=== PATIENT | male | born 1945 | race Caucasian/White ===

== ENCOUNTER 2019-03-16 08:17 | Day surgery (SDC) | payer OTHER ==
[2019-03-15 15:33] LABS: Absolute Lymphocytes (CBC) 0.8 K/uL (0.7-4.9); Basophils % 2.1 % (0-1.3); Lymphocytes % 19.2 % (15.3-44.8); MPV 7.4 fL (7.6-11.3); RBC Red Blood Cell Count 4.07 M/uL (4.33-5.43)
[2019-03-15 15:52] LABS: Potassium 4.7 mmol/L (3.5-5.1)
--- NOTE | 2019-03-15 17:17 | RAD REPORT ---
EXAM DESCRIPTION: RAD - Chest Pa And Lat (2 Views) - 03/15/2019 3:18 pm CLINICAL HISTORY: Preop chest, pending soft tissue mass removal COMPARISON: None. TECHNIQUE: PA and lateral views of the chest were obtained. FINDINGS: The lungs are clear of an acute infiltrate, mass or failure finding. Diaphragm is flattene d. Mild fibrotic changes present. Heart size is normal and central vasculature is within normal jeronimo its. No pleural effusion or pneumothorax seen. No acute bony finding noted. No aortic abnormality. IMPRESSION: No acute cardiopulmonary process. Patient does appear to have some underlying obstructive lung disease.
--- OUTSIDE RECORDS SUMMARY | 2019-03-16 08:22 | XMS REPORT | Clinical Summary ---
:1945 Author Organization [facility] Address [address] [place] [address] Care Team Providers Name Role Phone Jim Ramirez DO Primary Care Provider Allergies No Known Allergies Medications Medication Sig Dispensed Refills Start Date End Date Status allopurinol TAKE 1 TABLET 0 06/26/2017 Active (ZYLOPRIM) 300 MG BY MOUTH EVERY tablet DAY lisinopril Take 20 mg by 0 Active (PRINIVIL,ZESTRIL) mouth. 20 mg tablet omeprazole Reported on 0 05/15/2016 Active (PriLOSEC) 20 MG 11/10/2016 capsule amLODIPine Take 1 tablet 90 tablet 3 10/15/2018 10/15/2019 Active (NORVASC) 5 mg (5 mg total) by tablet mouth daily. amLODIPine Take 1 tablet 90 tablet 3 11/03/2017 10/15/2018 Discontinued (NORVASC) 5 mg (5 mg total) by tablet mouth daily. Active Problems Problem Noted Date Essential hypertension 11/03/2017 Encounters Date Type Specialty Care Team Description 11/02/2018 Office Visit Cardiology Carmine Kee MD Essential hypertension (Primary Dx) 10/15/2018 Orders Only Cardiology Jonathan Sanchez MA 05/04/2018 Office Visit Cardiology Carmine Kee MD Essential hypertension (Primary Dx) after 03/15/2018 Family History Medical History Relation Name Comments Heart failure Father Heart failure Mother Heart failure Paternal Uncle Relation Name Status Comments Father Mother Paternal Uncle Social History Tobacco Use Types Packs/Day Years Used Date Never Smoker Smokeless Tobacco: Never Used Alcohol Use Drinks/Week oz/Week Comments No Sex Assigned at Date Recorded Not on file Job Start Date Occupation Industry Not on file Not on file Not on file Travel History Travel Start Travel End No recent travel history available. Last Filed Vital Signs Vital Sign Reading Time Taken Blood Pressure 151/84 11/02/2018 11:47 AM CDT Pulse 69 11/02/2018 11:47 AM CDT Temperature - - Respiratory Rate - - Oxygen Saturation - - Inhaled Oxygen Concentration - - Weight 90.3 kg (199 lb) 11/02/2018 11:47 AM CDT Height 180.3 cm (5' 11") 11/02/2018 11:47 AM CDT Body Mass Index 27.75 11/02/2018 11:47 AM CDT Plan of Treatment Date Type Specialty Care Team Description 11/01/2019 Office Visit Cardiology Carmine Kee MD [address] [address] Health Maintenance Due Date Last Done Comments COLONOSCOPY SCREENING 1995 SHINGLES VACCINES (#1) 1995 65+ PNEUMOCOCCAL VACCINE (1 of 2 - PCV13) 2010 INFLUENZA VACCINE 03/17/2019 Procedures Procedure Name Priority Date/Time Associated Diagnosis Comments ECG 12-LEAD Routine 11/02/2018 10:49 AM Essential hypertension Results for this CDT procedure are in the results section. after 03/15/2018 Results ECG 12 lead (11/02/2018 10:49 AM CDT) Ventricular rate 62 [facility] Atrial rate 62 [facility] LA interval 148 [facility] QRSD interval 88 [facility] QT interval 384 [facility] QTC interval 389 [facility] P axis 1 54 [facility] QRS axis 1 82 [facility] T wave axis 28 [facility] EKG impression Normal sinus [facility] rhythm-Normal ECG-In automated comparison with ECG of 03-NOV-2017 10:57,-No significant change was found- Specimen Narrative Performed At Performing Organization Address City/State/Zipcode Phone Number [facility] [address] [place] [address] after 03/15/2018 Advance Directives Patient has advance care planning documents on file. For more information, please contact:Chance Cueva[address] [place] [address]
--- OUTSIDE RECORDS SUMMARY | 2019-03-16 08:22 | XMS REPORT ---
:1945 [facility] Address [address] [place] [address] Dr. Do[address] [place] [address] Care Team Providers Name Role Phone Unavailable Unavailable Unavailable Problems This patient has no known problems. Allergies, Adverse Reactions, Alerts This patient has no known allergies or adverse reactions. Medications This patient has no known medications. Encounters Start End Encounter Admission Attending Care Care Encounter Date/Time Date/Time Type Type Clinicians Facility Department ID 2018-12-07 2018-12-07 Outpatient [id number] 06:05:00 06:05:00
[2019-03-16] MEDS ORDERED: CEFAZOLIN/SWI 1gm 1 GM/10 ML SYR ONE (08:52)
[2019-03-16] MEDS ORDERED: Ringers Lactate 1,000 ML IV ONE (08:52)
[2019-03-16] MEDS ORDERED: BUPIVACAINE 0.5% PF 10 ML VIAL ONE (09:34)
[2019-03-16] MEDS ORDERED: PROPOFOL 200 MG/20 ML VIAL IV ONE (09:35)
[2019-03-16] MEDS ORDERED: MIDAZOLAM HCL 2 MG/2 ML INJ ONE (09:36)
[2019-03-16] MEDS ORDERED: LIDOCAINE 2% MPF 5 ML VIAL ONE (09:36)
[2019-03-16] MEDS ORDERED: FENTANYL CITR 100 MCG/2 ML ONE (09:36)
[2019-03-16] MEDS ORDERED: ONDANSETRON 4 MG/2 ML VIAL ONE (09:37)
--- NOTE | 2019-03-16 10:25 | P.BOP ---
Preoperative diagnosis: tender posterior neck mass 4x4 cm Postoperative diagnosis: same Primary procedure: Excisional biopsy of tender posterior neck subcutneous mass 4x4 cm Estimated blood loss: <10cc Specimen: posterior neck mass 4x4 cm Anesthesia: General Complications: None Transferred to: Recovery Room Condition: Good
--- NOTE | 2019-03-16 10:50 | EKG ---
Test Date: 2019-03-15 Test Time: 15:06:08 Rectifier Operator: STACEY MEASUREMENT RESULTS: Intervals: Rate: 64 [place]: 152 QRSD: 94 QT: 384 QTc: 396 [place]: P: 50 [place]: 152 QRS: 40 T: 26 INTERPRETIVE STATEMENTS: Normal sinus rhythm Normal ECG Compared to ECG 05/19/2016 10:30:43 No significant changes Electronically Signed On 03-16-19 10:49:45 CDT by Kenneth Neff
--- NOTE | 2019-03-16 21:38 | OP ---
Date of Procedure: 03/16/2019 Surgeon: Jonathan Cuello MD Preoperative Diagnoses: Tender posterior neck mass, history of history of skin cancer. Postoperative Diagnoses: Tender posterior neck mass, history of history of skin cancer. Procedure: Excisional biopsy of tender posterior neck subcutaneous mass, 4 x 4 cm. Specimen: Posterior neck mass. Indications: This is a case of a 73-year-old patient with multiple medical problems including being treated currently for cancer. Patient has this new mass in the posterior neck, increasing in size an d discomfort and tenderness. He is afraid it could be something neoplastic. At the same time, if it is not neoplastic and is an infected cyst, then it would also put him at risk since he is right now on current therapy for his other conditions. He wants that excised. It is large, is in a difficult area, so we going to do this under anesthesia with benefits, alternatives, and risks including but no t limited to infection, bleeding, damage to adjacent structures, anesthesia complication, recurrence, [place], and even . He also understands this may not relieve his symptoms. He might need more than one surgical intervention. He understood and signed a consent. The area of concern was marked by donald ling and the patient in the holding room. Description Of Procedure: Patient was brought to the operating room, placed in supine position. Ane sthesia was done without complication. Patient was placed in lateral decubitus position with proper protection. Neck area was prepped and draped in a sterile fashion. A wedge incision was made in the skin since the mass also was attached partially to the deep subcutaneous tissue and the skin area. So, we made a wedge incision and took this all the way down to the muscle. The muscle seemed not to be attached to it. The mass was completely excised. The area was irrigated. This had to be closed in layers since it was deep with deep layers with a 3-0 chromic and then a 2-0 nylon on top. This wa s after hemostasis, irrigation, and local anesthetic. Patient tolerated the procedure well. Patient was sent to recovery room in stable condition. Sponge counts and instrument counts were correct. ALLIE/SHANIKA Voice ID: [id number] Report ID: [id number]
--- NOTE | 2019-03-16 22:41 | DS ---
Date of Discharge: 03/16/2019 Diagnosis: Tender posterior neck mass. Procedure: Excisional biopsy of tender posterior neck mass, 4 x 4 cm. Disposition: Home. Activity: As tolerated. No heavy lifting. Followup: Followup in my office in 1 week. Call for appointment, [phone]. Discharge Instructions: Keep the area dry for 48 hours, then may shower. Medications: See orders. ALLIE/SHANIKA Voice ID: [id number] Report ID: [id number]
== END 2019-03-16 11:50 | disposition home or self-care (01) ==
LOC: OR 08:17
PROVIDERS: ATTEND Surgery
PROC: 0JB40ZX Excision of Right Neck Subcutaneous Tissue and Fascia, Open Approach, Diagnostic (ICD-10-PCS; 2019-03-16)
PROC: 0JB50ZX Excision of Left Neck Subcutaneous Tissue and Fascia, Open Approach, Diagnostic (ICD-10-PCS; principal; 2019-03-16 10:00)
DX: L72.0 Epidermal cyst (principal); I10 Essential (primary) hypertension; M10.9 Gout, unspecified; Z79.899 Other long term (current) drug therapy; Z85.820 Personal history of malignant melanoma of skin
CPT/HCPCS: 11426; 12042; 93005; 85025; 80048; 36415; 88304; 71046; J2704; J2250; J3010; J0690; J2405; 88305

== ENCOUNTER 2019-10-19 07:27 | Day surgery (SDC) | payer OTHER ==
[2019-10-18 10:54] LABS: Absolute Lymphocytes (CBC) 0.8 K/uL (0.7-4.9); Basophils % 2.2 % (0-1.3); Hematocrit 40.6 % (39.6-49.0); Lymphocytes % 21.7 % (15.3-44.8); MPV 6.9 fL (7.6-11.3); RBC Red Blood Cell Count 4.04 M/uL (4.33-5.43)
--- NOTE | 2019-10-18 10:56 | RAD REPORT ---
EXAM DESCRIPTION: Bird Mccallum (2 Views)10/18/2019 10:50 am CLINICAL HISTORY: Hypertension/preop for hernia repair COMPARISON: 2019 FINDINGS: The lungs appear clear of acute infiltrate. The heart is normal size. Mild left pleural t hickening suspected IMPRESSION: No acute abnormalities displayed
[2019-10-18 11:04] LABS: Potassium 4.6 mmol/L (3.5-5.1)
--- NOTE | 2019-10-18 12:21 | EKG ---
Test Date: 2019-10-18 Test Time: 10:28:26 Rectifier Operator: PURVI MEASUREMENT RESULTS: Intervals: Rate: 60 [place]: 154 QRSD: 92 QT: 402 QTc: 402 [place]: P: 38 [place]: 154 QRS: 18 T: 16 INTERPRETIVE STATEMENTS: Normal sinus rhythm Normal ECG Compared to ECG 03/15/2019 15:06:08 No significant changes Electronically Signed On 10-18-19 12:21:11 LOG CHIPPER OPERATOR by Haris Cruz
--- OUTSIDE RECORDS SUMMARY | 2019-10-19 07:34 | XMS REPORT ---
:1945 [facility] Address [address] [place] [address] Dr. Do[address] [place] [address] Care Team Providers Name Role Phone Unavailable [...]
[2019-10-19] MEDS ORDERED: Ringers Lactate 1,000 ML IV ONE ×2 (08:12→12:20)
[2019-10-19] MEDS ORDERED: propofoL 200 MG/20 ML VIAL IV ONE (08:26)
[2019-10-19] MEDS ORDERED: FENTANYL CITR 100 MCG/2 ML ONE ×2 (08:26→09:41)
[2019-10-19] MEDS ORDERED: MIDAZOLAM HCL 2 MG/2 ML INJ ONE (08:27)
[2019-10-19] MEDS ORDERED: LIDOCAINE 2% MPF 5 ML VIAL ONE (08:27)
[2019-10-19] MEDS ORDERED: GLYCOPYRROLATE 0.2 MG/ML SYR ONE ×2 (08:28→10:47)
[2019-10-19] MEDS ORDERED: ONDANSETRON 4 MG/2 ML VIAL ONE ×2 (08:28→10:43)
[2019-10-19] MEDS ORDERED: NEOSTIGMINE 1 MG/ML -5 ML ONE (08:36)
[2019-10-19] MEDS ORDERED: BUPIVACAINE 0.5% PF 10 ML VIAL ONE (08:48)
[2019-10-19] MEDS ORDERED: CEFAZOLIN/SWI 1gm 1 GM/10 ML SYR ONE (08:51)
[2019-10-19] MEDS ORDERED: ROCURONIUM 50 MG/5 ML VIAL IV ONE (09:24)
[2019-10-19] MEDS ORDERED: EPHEDRINE SULF 50 MG/ML VIAL ONE (09:24)
[2019-10-19] MEDS ORDERED: HYDRALAZINE HCL 20 MG/ML VIAL ONE (09:29)
--- NOTE | 2019-10-19 09:50 | P.BOP ---
Preoperative diagnosis: tender right inguinal hernia Postoperative diagnosis: same Primary procedure: Laparoscopic repair of Right inguinal hernia with mesh Loss Prevention Guard: HI PLUNKETT (STAGE SETTINGS PAINTER) Estimated blood loss: <10cc Specimen: none Findings: direct and indirect hernias R Anesthesia: General Complications: None Drain(s): Other Transferred to: Recovery Room Condition: Good
[2019-10-19] MEDS: MEPERIDINE HCL 25 MG/0.5 ML ONE ×2 (10:05→10:10)
[2019-10-19] MEDS: HYDROMORPHONE HCL 1 MG/ML INJ ONE ×2 (10:18→10:25)
[2019-10-19] MEDS ORDERED: HYDROCODONE/APAP 5/325 MG TAB ONE (11:20)
[2019-10-19] MEDS ORDERED: TAMSULOSIN 0.4 MG SR CAP PO ONE (13:00)
[2019-10-19 13:13] VITALS: BP 130/78; TEMP 98.1; O2SAT 96
--- NOTE | 2019-10-21 20:05 | OP ---
Date of Procedure: 10/21/2019 Surgeon: Jonathan Cuello MD Movie Extra: ADELFO Sparks. Preoperative Diagnosis: Tender right inguinal hernia. Postoperative Diagnosis: Tender right inguinal hernia. Procedure: Laparoscopic repair of right inguinal hernia with mesh. Findings: Direct and indirect hernia. Anesthesia: General plus local. Indications: This is a case of a 74-year-old patient, who comes to us with a tender right inguinal h ernia. The benefits, alternatives, and risks of repair fully explained, which include, but are not l imited to infection, bleeding, damage to adjacent structures, anesthesia complication, chronic pain, chronic numbness, recurrence [place], even . He also understands this may not relieve any symptoms. He might need more than one surgical intervention. He signed a consent. He was also explained the intention of most likely putting a mesh in that region. Pros and cons of mesh placement were discuss ed with the patient. All the questions were answered to his satisfaction. He did consent for mesh p lacement. Description Of Procedure: Patient brought to the operating room, placed in supine position, anesthes ia was without any complication. A time-out was called. Abdominal and inguinal area were prepped an d draped in sterile fashion. Local anesthesia was applied followed by sharp incision of the skin in the infraumbilical region. Anterior rectus sheath was identified on the right side. An incision was made in that area. Muscle retracted laterally to expose the posterior rectus sheath. The extraperi toneal space was gently developed with the help of blunt dissection and a space maker balloon tipped trocar placed over the area directed towards the pubic symphysis. A laparoscope was then introduced. The balloon was inflated under direct visualization to create the extraperitoneal space. After darren t, I will remove the balloon. Insufflate the area. A 5 mm trocar was placed in the area near of the pubic symphysis and another one care home between the first and the second one. The preperitoneal spa ce was gently developed. We exposed the inferior epigastric vessels and kept them anterior. Roverto ligament was dissected laterally to the junction of the iliac veins. Avoiding damage to the femoral branch of the genitofemoral nerve and lateral femoral cutaneous nerve. The cord structures were visu alized and skeletonized. We noticed two, direct and indirect, both of them were carefully pull out g ently. We will retract into the peritoneal space. At that moment, I have a 3D mesh right side that was introduced in the working space to one of the trocar sites. They were aligned to cover direct an d indirect spaces. The mesh was placed and tackle laterally and superior to the iliopubic tract,in t he inferior medial to the Roverto ligament. We made sure we had proper hemostasis. Under direct visualization and retracting the hernia sac it i s still into the peritoneal cavity. We proceeded to deflate the area while holding the mesh in place . At that moment, I proceeded to remove the trocars under direct visualization. Closed the anterior rectus sheath with #1 Vicryl, and the skin approximated. Sponge count and instrument counts were co rrect. At the end of the case, the testicles were within the scrotum. Disposition: Home. Activity: As tolerated. No heavy lifting. Followup: In my office in 1 week. Call for an appointment at [phone] Discharge Instructions: Keep the area dry for 48 hours. Cold compresses to the right inguinal regio n for 24 hours. Medications: See orders. ALLIE/MODL Voice ID: [id number] Report ID: [id number]
== END 2019-10-19 13:00 | disposition home or self-care (01) ==
LOC: OR 07:27
PROVIDERS: ATTEND Surgery
PROC: 0YU54JZ Supplement Right Inguinal Region with Synthetic Substitute, Percutaneous Endoscopic Approach (ICD-10-PCS; principal; 2019-10-19 08:45)
DX: K40.90 Unilateral inguinal hernia, without obstruction or gangrene, not specified as recurrent (principal); I10 Essential (primary) hypertension; E78.00 Pure hypercholesterolemia, unspecified; K21.9 Gastro-esophageal reflux disease without esophagitis; Z85.118 Personal history of other malignant neoplasm of bronchus and lung; Z80.0 Family history of malignant neoplasm of digestive organs; Z82.49 Family history of ischemic heart disease and other diseases of the circulatory system
CPT/HCPCS: 93005; 85025; 80048; 36415; 71046; 49650; J0360; J2704; J2250; J3010 ×2; J2175; J1170; J2710; J0690; J7120 ×2; J2405 ×2